=== PATIENT | male | born 1940 | race Caucasian/White ===

== ENCOUNTER → 2017-07-24 | Outpatient (CLI) | payer MEDICARE ==
[~2017-07-24] MED LIST: ASPIRIN325 MG PO; CARVEDILOL25 MG; FERROUS SULFAT325 MG; IOPAMIDOL 370 MG/ML 200 ML INFUS..BTL INJ ONE; LISINOPRIL40 MG; MONTELUKAST SOD10 MG; SODIUM CHLORIDE 0.9% 50ML 50 ML ONE; SUPER B COMPLE150 MG; TAMSULOSIN HCL0.4 MG; THERAGRAN-M PR1 EAC1
[2017-07-24 15:23] LABS: BLOOD UREA NITROGEN 15 mg/dL (7-26); BUN/CREATININE RATIO 15 (6-25); CREATININE, SERUM 0.97 mg/dL (0.72-1.25); EST GLOMERULAR FILTRATION RATE > 60 ML/MIN (60-)
--- NOTE | 2017-07-26 20:55 | Diagnostic Imaging Report ---
History: Throat mass Comparison studies: None Technique: Axial, coronal and sagittal images from the skull base to the thoracic inlet. Coronal and sagittal images reconstructed from the axial data. Intravenous contrast: 100 cc of Omnipaque 300. Findings: Masses: An ill-defined left transglottic mass extends from the left aryepiglottic fold to the subglottic region. It prevents visualization of the left piriform sinus and partially obstructs the supra and infra glottic airway. It does not extend into the anterior commissure but may cross midline posteriorly. Laryngeal cartilages: The partially ossified thyroid cartilages, the barely visualized originally and the cricoid cartilage are grossly intact. Lymph nodes: No radiographically significant adenopathy. Soft tissues: A incidental 3 cm homogeneously hypodense lipoma, located between the right submandibular gland and the right sternocleidomastoid muscle, medially displaces the right carotid sheath. Otherwise, no soft tissue abnormalities. Vessels: Mildly stenosing calcifications of the carotid bulbs resulting in less than 30% stenosis. Incidental atherosclerotic calcifications in the carotid siphons. The jugular veins are patent. The right is dominant Glands (thyroid, parotid and submandibular): Normal in size and symmetric. No masses. Orbits: No abnormalities. Paranasal sinuses: Clear. Temporal bones: No abnormalities. Skull base and facial bones: Intact. Cervical spine: Bones are mildly demineralized. Slight reversal of the usual lordosis centered at C5-6. Mildly degenerated disc at C4-5, moderate at C5-6 and C6-7 and from T2 to T4. Spinal canal stenosis is moderate at C5-6 and C6-7 due to disc osteophyte complexes. Foraminal stenosis from C2 to C7 is mild right at C2-3, moderate at C3-4, mild left at C4-5, moderate left, mild right at C5-6 and severe bilaterally at C6-7 due to facet and uncovertebral arthrosis. IMPRESSION: 1. Infiltrating left transglottic mass which prevents visualization of the piriform sinus, which partially obstructs the supraglottic and infraglottic airway but does not erode the laryngeal cartilages, is suspicious for a squamous cell carcinoma. 2. No radiographically significant adenopathy. 3. Extensive degenerative changes in the cervical spine as described. 4. 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 Abel Koehler M.D. on 07/26/2017 8:51 PM
== END ==
LOC: CT 14:41
PROVIDERS: ATTEND Otolaryngology
DX: D49.1 Neoplasm of unspecified behavior of respiratory system (principal)
CPT/HCPCS: 36415; 70491; 82565; 84520; Q9967

== ENCOUNTER 2017-12-07 21:22 | Emergency (ER) | payer MEDICARE ==
[~2017-12-07] VITALS: Ht 175.3 cm; Wt 71.7 kg
[~2017-12-07 21:22] MED LIST changes: -IOPAMIDOL 370 MG/ML 200 ML INFUS..BTL INJ ONE; -SODIUM CHLORIDE 0.9% 50ML 50 ML ONE
[2017-12-07] MEDS ORDERED: ACETAMINOPHEN 325 MG/10 ML UDC PO PRN (22:00)
--- NOTE | 2017-12-07 22:42 | Diagnostic Imaging Report ---
Examination: CT head without contrast Clinical Indication: Fall; head injury. Technique: Transaxial noncontrast images from the skull base through the vertex were obtained. Sagittal and coronal reformatted images were done. Comparison: None. Findings: Scalp: Small left scalp hematoma. Bones: Intact. No fractures. No blastic or lytic lesions. Brain sulci: Mild volume loss for patient's age. Ventricles: No hydrocephalus. Extra-axial space: No abnormalities. Parenchyma: There are mild confluent areas of low-attenuation within subcortical and periventricular white matter, nonspecific, but could represent microvascular ischemic disease. No masses, hemorrhage, or acute or chronic cortical based vascular insults. Suprasellar region: No abnormalities. Craniocervical junction: The foramen magnum is patent. No Chiari one malformation. Incidental findings: Atherosclerotic calcification of the cavernous and supraclinoid internal carotid and V4 segments of the bilateral vertebral arteries. Impression: 1. Small left scalp hematoma. No associated calvarial fracture or acute intracranial finding. 2. Mild chronic microvascular ischemic change and mild volume loss. Signed by: Dr. Isabelle Lagos M.D. on 12/07/2017 10:38 PM
[2017-12-07] MEDS ORDERED: LIDOCAINE 1% W/EPINEPHRINE 20 ML VIAL INJ ONE (22:45)
[2017-12-07] MEDS ORDERED: LIDOCAINE HCL 1% LOCAL INJ 20 ML VIAL ONE (22:53)
[2017-12-07] MEDS ORDERED: BACITRACIN ZINC 0.9GM TP ONE (23:00)
[2017-12-07 23:16] VITALS: BP 109/74
== END 2017-12-07 23:21 | disposition home or self-care (01) ==
LOC: ER 21:22
DX: S01.01XA Laceration without foreign body of scalp, initial encounter (principal); W01.0XXA Fall on same level from slipping, tripping and stumbling without subsequent striking against object, initial encounter; Y92.008 Other place in unspecified non-institutional (private) residence as the place of occurrence of the external cause; I10 Essential (primary) hypertension; I50.9 Heart failure, unspecified; Z85.21 Personal history of malignant neoplasm of larynx
CPT/HCPCS: 70450; 99283; J2001